=== PATIENT | male | born 1970 | race Caucasian/White ===

== ENCOUNTER → 2024-02-29 08:38 | Outpatient (REF) | payer OTHER, SELFPAY | LOC: RCS 08:38 | PROVIDERS: ATTENDING PHYSICIAN Nurse Practitioner | DX: I49.9 Cardiac arrhythmia, unspecified (principal) | CPT/HCPCS: 93225; 93226 ==

== ENCOUNTER 2024-05-15 14:24 | Emergency (ER) | payer OTHER, SELFPAY ==
[2024-05-15 15:11] LABS: % Basophils 0.1 % (0-2); % Eosinophils 0.1 % (0-6); % Immature Granulocytes 0.1 % (0-0.5); % Lymphocytes 13.4 % (20.5-51.1); % Monocytes 9.7 % (1.7-9.3); % Neutrophils 76.6 % (42.2-75.2); Absolute Monocytes 0.7 10^3/uL (0.1-0.6); Absolute Neutrophils 5.5 10^3/uL (1.4-6.5); Hematocrit 42.5 % (39.0-52.0); Hemoglobin 14.9 g/dL (13.0-18.0); Mean Corp Hgb Conc. 35.1 g/dL (33.0-37.0); Mean Corpuscular Hgb 31.2 pg (27.0-31.0); Mean Corpuscular Volume 89.1 fL (80.0-94.0); Mean Platelet Volume 10.4 fL (7.4-10.4); Nucleated Red Blood Cells % 0 % (-); Platelet Count 158 10^3/uL (130-400); Red Blood Cell Count 4.77 10^6/uL (4.70-6.10); Red Cell Dist. Width 12.4 % (11.5-14.5); White Blood Cell Count 7.2 10^3/uL (4.8-10.8)
[2024-05-15 15:21] LABS: Lactic Acid 2.8 mmol/L (0.7-2.0)
[2024-05-15 15:24] LABS: ALT (SGPT) 30 U/L (0-50); AST (SGOT) 30 U/L (17-59); Albumin 4.6 g/dl (3.5-5.0); Alkaline Phosphatase 58 U/L (38-126); Blood Urea Nitrogen 23 mg/dl (9-20); Calcium 9.8 mg/dl (8.4-10.2); Carbon Dioxide 24 mmol/L (22-30); Chloride 105 mmol/L (98-107); Glucose 97 mg/dl (70-99); Lipase 77 U/L (23-300); Potassium 3.9 mmol/L (3.5-5.1); Sodium 139 mmol/L (135-145); Total Bilirubin 0.8 mg/dl (0.2-1.3); Total Protein 6.9 g/dl (6.3-8.2); eGFR > 60.00
[2024-05-15 16:18] VITALS: BP 118/64
--- NOTE | 2024-05-15 16:30 | ED.GENMED ---
History of Present Illness
General
Chief Complaint: Abdominal Symptoms
Source: patient
Exam Limitations: none
Time Seen by Provider: 05/15/24 16:06
Nursing documentation reviewed up to this point in time: agreed with
History of Present Illness
History of Present Illness:
Patient to ED with complaint of diffuse abd. cramping, diarrhea. Symptoms started yesterday, became worse today. Denies fever/chills. Last episode diarrhea 2 hours ago. Brought to ED by father for eval.
Past History
Past History
ED Past Medical History: None
ED Past Surgical History: Other (nose)
Social History
Tobacco: Non-smoker
Alcohol: Daily (beer +2 drinks daily)
Drug: None
Review of Systems
Review of Systems
Allergies reviewed?: Yes
All Other Systems: ROS reviewed and negative except as documented in HPI and ROS
Constitutional: Reports no symptoms
EENT: Reports no symptoms
Respiratory: Reports no symptoms
Cardiac: Reports no symptoms
ABD/GI: Reports abdominal pain and diarrhea
: Reports no symptoms
Musculoskeletal: Reports no symptoms
Skin: Reports no symptoms
Neurological: Reports no symptoms
Psychiatric: Reports no symptoms
Phy Exam
General Physical Exam
General Presentation: moderate distress
General age: appears stated age
General Skin: warm and dry
General Habitus: normal
General Mental: alert
Cardiovascular Exam
Cardiovascular Exam: regular rate/rhythm and no edema
Pulmonary Exam
Pulmonary Exam: no respiratory distress and chest non tender
Gastrointestinal Exam
Gastrointestinal Exam: normal bowel sounds, soft, no organomegaly, no pulsatile mass, non distended, no cva tenderness and cva tenderness
Palpation: generalized: Moderate tenderness
Musculoskeletal Exam
Musculoskeletal Exam: full ROM and neuro vasc intact
Skin Exam
Skin Exam: normal color, warm/dry and no rash
Psychiatric Exam
Psychiatric Exam: normal mood/affect
Course
Orders/Labs/Results
Orders:
Orders
05/15/24 14:49
Complete Blood Count/With Diff Urgent
Comprehensive Metabolic Panel Urgent
Lactate Level [Lactic Acid] Urgent
Lipase Urgent
05/15/24 16:29
Add On- LAB Urgent
Tests Added?: lipase
05/15/24 16:30
CT Abd/pel W Iv And Oral Contr Urgent
Comment:
Reason For Exam: diffuse pain
0.9% Sodium Chloride 1000 ml [Nss] 1,000 ml IV BOLUS
Iohexol [Omnipaque] See Protocol PO NOW STA
05/15/24 18:19
Urinalysis Reflex To Culture Urgent
Date Specimen was Collected: 05/15/24
Time Specimen was Collected: 16:36
Abnormal Lab Results
05/15/24
14:49
MCH 31.2 H pg
(27.0-31.0)
Absolute Lymphs (auto) 1.0 L 10^3/uL
(1.2-3.4)
Absolute Monos (auto) 0.7 H 10^3/uL
(0.1-0.6)
Neutrophils % 76.6 H %
(42.2-75.2)
Lymphocytes % 13.4 L %
(20.5-51.1)
Monocytes % 9.7 H %
(1.7-9.3)
BUN 23 H mg/dl
(9-20)
Creatinine 1.4 H mg/dL
(0.7-1.3)
Lactic Acid 2.8 H mmol/L
(0.7-2.0)
05/15/24 14:49
05/15/24 14:49
Vital Signs
Initial and Last Documented VS:
Initial Vital Signs
Temp Pulse Resp Pulse Ox
97.7 F 65 20 98
05/15/24 14:36 05/15/24 14:36 05/15/24 14:36 05/15/24 14:36
Last Documented Vital Signs
Temp Pulse Resp BP Pulse Ox
99.3 F 73 16 136/74 100
05/15/24 16:34 05/15/24 16:34 05/15/24 16:34 05/15/24 16:34 05/15/24 16:34
*Radiology
Radiology exam reviewed: radiology read reviewed
*Pulse Oximetry
Patient hypoxic: no
*Critical Care Note
Total Time (30-74mins, 75-104mins- exclusive of procedures): Not Applicable
Update Note
Update Note:
Patient to ED with complaint of diffuse abd. pain and diarrhea. Given IVF and zofran in ED with improvement. Labs and CT results reviewed with patient. No findings to explain his symptoms. No symptoms free. Will discharge home, follow upw ith
PCP in AM. Given instructions on s/s to return to ED and he is agreeable to plan.
ED Attending Note
-
Portions of this chart may have been created with voice recognition software.� Occasional wrong word or��sound alike� substitutions may have occurred due to the inherent limitations of voice recognition software.
Discharge Plan
Departure
Patient Disposition: Home (Routine Discharge)
Date of Disposition: 05/15/24
Time of Disposition: 20:09
Patient with high blood pressure during this ER visit?: No
Condition: Good
Covid-19: Not Applicable
Discharge Problem:
Abdominal pain
Instructions: Abdominal Pain
Referrals:
Jazmine Valentin CRNP [Family Provider] - Tomorrow
Activity Restrictions/Additional Instructions:
Return to the emergency department for any changes in/worsening of your symptoms.
Interventions
Interventions:
*Risk Screen - Suicide Last Done: 05/15/24 14:36
*General Assessment Last Done: 05/15/24 14:36
*Neglect/Abuse Screening Last Done: 05/15/24 20:15
*ED- Fall Risk Assessment Last Done: 05/15/24 20:15
[facility] Assessment Last Done: 05/15/24 20:14
Discharge Date and Time
Print Language: SENEGALESE
[2024-05-15 16:34] VITALS: BP 136/74; BMI 26.4
[2024-05-15] MEDS: OMNIPAQUE 50 ML PO (16:46)
[2024-05-15] MEDS: NSS 1000 IV (16:47)
[2024-05-15 18:24] LABS: Urine Albumin Negative (Neg - Trace); Urine Bilirubin Negative (Negative); Urine Character Clear (Clear); Urine Color Yellow; Urine Glucose Negative (Negative); Urine Ketone Negative (Negative); Urine Leukocyte Negative (Negative); Urine Nitrite Negative (Negative); Urine Occult Blood Negative (Negative); Urine Specific Gravity 1.005 (<1.030); Urine Urobilinogen Negative (Neg - 1+)
== END 2024-05-15 20:16 | disposition home or self-care (01) ==
LOC: EMR 14:24
PROVIDERS: Nurse Practitioner; EMERGENCY PHYSICIAN Emergency Medicine; FAMILY PHYSICIAN Nurse Practitioner
DX: R10.9 Unspecified abdominal pain (principal)
CPT/HCPCS: 99285; 96360; 74177; 80053; 81003; 83605; 83690; 85025; Q9967